=== PATIENT | male | born 1960 | race Caucasian/White ===

== ENCOUNTER 2021-11-25 04:28 | Day surgery (SDC) | payer OTHER ==
[2021-11-23 17:46] VITALS: BMI 33.0
[2021-11-25] MEDS ORDERED: BUPIVACAINE LIPOSOME/PF (EXPAREL) 266 MG/20 ML VIAL ONE (07:09)
[2021-11-25] MEDS ORDERED: BUPIVACAINE HCL/PF 0.5% (5MG/ML) 10 ML VIAL ONE (07:09)
[2021-11-25] MEDS ORDERED: MIDAZOLAM HCL 2 MG/2 ML SINGLE DOSE VIAL ONE ×3 (07:24→08:06)
[2021-11-25] MEDS ORDERED: ROCURONIUM BROMIDE 50 MG/5 ML SYRINGE ONE (08:04)
[2021-11-25] MEDS ORDERED: fentaNYL CITRATE 250 MCG/5 ML VIAL ONE (08:06)
[2021-11-25] MEDS ORDERED: ceFAZolin SODIUM 1 GM VIAL IVPB ONE (08:40)
[2021-11-25] MEDS ORDERED: KETOROLAC TROMETHAMINE 30 MG/1 ML VIAL ONE (08:58)
[2021-11-25] MEDS ORDERED: DEXAMETHASONE SOD PHOSPHATE 4 MG/1 ML VIAL ONE (08:58)
[2021-11-25] MEDS ORDERED: LIDOCAINE HCL/PF 2% SDV 5ML VIAL ONE (08:58)
[2021-11-25] MEDS ORDERED: LABETALOL HCL 5 MG/1 ML (100MG/20 ML VIAL) ONE (08:58)
[2021-11-25] MEDS ORDERED: ceFAZolin SODIUM 1 GM VIAL ONE (08:58)
[2021-11-25] MEDS ORDERED: ACETAMINOPHEN INJECTION 100 ML IVPB ONE (09:04)
[2021-11-25] MEDS ORDERED: ONDANSETRON 4 MG/2 ML VIAL IVPUSH PRN (09:37)
[2021-11-25] MEDS ORDERED: oxyCODONE HCL 5 MG TABLET PO PRN ×2 (09:37)
[2021-11-25] MEDS ORDERED: LACTATED RINGERS SOLUTION 1,000 ML IV SCH (09:45)
[2021-11-25] MEDS ORDERED: NEOSTIGMINE METHYLSULFATE 0.5 MG/ML - 10 ML MDV ONE (10:14)
[2021-11-25] MEDS ORDERED: GLYCOPYRROLATE 0.2 MG/1 ML VIAL ONE (10:14)
[2021-11-25] MEDS ORDERED: DESFLURANE GAS 240 ML BOTTLE IH ONE (12:46)
[2021-11-25 14:36] VITALS: BP 125/68; PULSE 74; TEMP 97.6
== END 2021-11-25 14:20 | disposition home or self-care (01) ==
LOC: JASU-SURG 04:28
PROVIDERS: ATTEND Surgery
PROC: 8E0W4CZ Robotic Assisted Procedure of Trunk Region, Percutaneous Endoscopic Approach (ICD-10-PCS; 2021-11-25)
PROC: 0YU54JZ Supplement Right Inguinal Region with Synthetic Substitute, Percutaneous Endoscopic Approach (ICD-10-PCS; principal; 2021-11-25 08:00)
DX: K40.90 Unilateral inguinal hernia, without obstruction or gangrene, not specified as recurrent (principal)
CPT/HCPCS: 49650; S2900; 94760